=== PATIENT | female | born 1955 | race Caucasian/White ===

== ENCOUNTER 2016-04-06 22:55 | Emergency (ER) | payer OTHER ==
[~2016-04-06] VITALS: Ht 162.6 cm; Wt 83.7 kg
[~2016-04-06 22:55] MED LIST: CALC-137 PO; FEXO60TA PO; TAB-TAB PO; VENTAER INH; VITA400C28 PO
[2016-04-06 23:04] VITALS: BP 138/90; PULSE 93; RESP 20; TEMP 97.5; O2SAT 99
[2016-04-06 23:16] VITALS: BP 138/90; PULSE 93; RESP 18; TEMP 97.5; O2SAT 99
--- NOTE | 2016-04-06 23:17 | PD ---
HPI Chief Complaint: burning on urination Time Seen by Provider: 23:15 Travel History International Travel<30 days: No Contact w/Intl Traveler<30days: No Traveled to known affect area: No History of Present Illness HPI The patient is a 60-year-old female that complains of dysuria, frequency and urgency for 2 hours. She denies any flank pain, fever, nausea, vomiting or diarrhea. She denies any hematuria. She states she has had urinary tract infections in the past and these are her typical symptoms. She has been drinking increased amounts of fluids since this happened. PFSH Past Medical History Asthma: Yes Cancer: No Cardiovascular Problems: No Diabetes: No Endocrine: No Genitourinary: No Hepatitis: No Hiatal Hernia: No Immune Disorder: No Musculoskeletal: Yes (PULLED MUSCLE FOREARM RIGHT ) Neurologic: No Psychiatric: No Respiratory: Yes (ASTHMA, SLEEP APNEA USES CPAP) Thyroid Disease: No Menopausal: Yes : 1 Para: 1 Past Surgical History Abdominal Surgery: No AICD: No Body Medical Devices: NONE Cardiac Surgery: No Ear Surgery: No Endocrine Surgery: No Eye Surgery: No Genitourinary Surgery: No Gynecologic Surgery: No Joint Replacement: No Oral Surgery: Yes (WISDOM TEETH EXTRACTED) Pacemaker: No Thoracic Surgery: Yes (LUMPECTOMY RIGHT BREAST (BENIGN) ) Social History Alcohol Use: No Tobacco Use: No Substance Use: No Allergies-Medications (Allergen,Severity, Reaction): Coded Allergies: Penicillin (Verified Allergy, Severe, 04/06/16) DROPPED BP AND FAINTED (OCCURED DURING CHILDHOOD) Demerol (Unverified Allergy, Intermediate, INCREASE BLOOD PRESSURE; HEADACHE, 04/06/16) Reported Meds & Prescriptions Reported Meds & Active Scripts Active No Active Prescriptions or Reported Medications Review of Systems Except as stated in HPI: all other systems reviewed are Neg Physical Exam Narrative GENERAL: Well-nourished, well-developed patient in minimal apparent distress with her urinary symptoms. Her vital signs show blood pressure 138/90 at otherwise normal. SKIN: Warm and dry. HEAD: Normocephalic. EYES: No scleral icterus. No injection or drainage. NECK: Supple, trachea midline. No JVD or lymphadenopathy. CARDIOVASCULAR: Regular rate and rhythm without murmurs, gallops, or rubs. RESPIRATORY: Breath sounds equal bilaterally. No accessory muscle use. GASTROINTESTINAL: Abdomen soft, with tenderness to direct palpation over the midline suprapubic area, nondistended. No guarding or rebound is present. MUSCULOSKELETAL: No cyanosis, or edema. BACK: Nontender without obvious deformity. No CVA tenderness. Data Data Last Documented VS Vital Signs Date Time Temp Pulse Resp B/P Pulse Ox O2 Delivery O2 Flow Rate FiO2 04/06/16 23:22 93 18 04/06/16 23:16 97.5 138/90 99 Orders Urinalysis - C+S If Indicated (04/06/16 23:14) Urine Culture (04/06/16 23:23) Labs Laboratory Tests Test 04/06/16 23:23 Urine Color STRAW Urine Turbidity CLEAR Urine pH 6.0 Urine Specific [place] 1.003 Urine Protein NEG mg/dL Urine Glucose (UA) NEG mg/dL Urine Ketones NEG mg/dL Urine Occult Blood MOD Urine Nitrite NEG Urine Bilirubin NEG Urine Leukocyte Esterase LARGE Urine RBC 3-5 /hpf Urine WBC 20-24 /hpf Urine Squamous Epithelial 0-5 /hpf Cells Urine Bacteria OCC /hpf Microscopic Urinalysis Comment CULTURE INDICATED MDM Medical Decision Making Medical Screen Exam Complete: Yes Emergency Medical Condition: Yes Medical Record Reviewed: Yes Interpretation(s) The urine shows specific gravity 1.003, moderate occult blood, large leukocyte esterase with 20-24 white cells and culture is indicated. Differential Diagnosis Cystitis, pyelonephritis, urethritis, PIDhighly unlikely Narrative Course The patient has a cystitis. The urine is positive despite her increasing liquid intake and very low specific gravity. This has not spread to the kidneys yet and is not a pyelonephritis. Plan: The patient be given Macrobid twice daily for 10 days. She will get her first dose here and get Pyridium as well. Procedures EKG Prior to Arrival: No EKG Not Completed: EKG Not Medically Necessary Diagnosis Primary Impression: Cystitis Additional Instructions: Continue to increase your liquid intake to ensure that a good urine flow is present. The antibiotic is one tablet twice daily. The Pyridium turns your urine orange and is taken to prevent the bladder discomfort. Follow-up with your primary care physician next week. Med/Other Pt SpecificInfo: Prescription(s) given Scripts Phenazopyridine (Pyridium)100 Mg [id number] Mg PO Q8HR #20 TAB Ref 0 Prov:Ino Jacobs MD 1/25/17 Nitrofurantoin Monohydrate Macrocrystals (Macrobid)100 Mg [id number] Mg PO BID 10 Days Ref 0 Prov:Ino Jacobs MD 04/06/16 Disposition: 01 DISCHARGE HOME Condition: Stable Ino Jacobs MD Apr 06, 2016 23:17
[2016-04-06 23:25] LABS: GLUCOSE,URINE NEG (NEG); KETONE, URINE NEG (NEG); NITRITE,URINE NEG (NEG)
[2016-04-06 23:28] LABS: BLOOD, URINE MOD (NEG); URINE COLOR STRAW (YELLW/STRAW)
[2016-04-06 23:35] LABS: BACTERIA, URINE OCC /hpf; COMMENT (UR) CULTURE INDICATED; CULTURE IF INDICATED CULTURE INDICATED; SQUAMOUS EPITHELIAL CELL URINE 0-5 /hpf (0-5)
[2016-04-06] MEDS ORDERED: PHEN0.4T PO (23:53)
[2016-04-06] MEDS ORDERED: MACR100C2 PO (23:53)
[2016-04-07] MEDS ORDERED: NITROFURANTOIN MONOHYD MACROCR 100 MG CAP PO ONE
[2016-04-07] MEDS ORDERED: PHENAZOPYRIDINE HCL 100 MG TAB PO ONE
[2016-04-07 00:10] VITALS: BP 140/71
== END 2016-04-07 00:25 | disposition home or self-care (01) ==
LOC: PHED 22:55
DX: N30.90 Cystitis, unspecified without hematuria (principal); J45.909 Unspecified asthma, uncomplicated
CPT/HCPCS: 81001; 87086; 99283